=== PATIENT | female | born 1955 | race Asian ===

== ENCOUNTER 2023-11-18 07:00 | Day surgery (SDC) | payer OTHER ==
[~2023-11-18] VITALS: Ht 162.6 cm; Wt 63.0 kg
[2023-11-18] MEDS ORDERED: SIMETHICONE 40 MG/0.6 ML ML ONE (08:13)
[2023-11-18] MEDS ORDERED: MIDAZOLAM HCL 5 MG/5 ML VIAL ONE (08:14)
[2023-11-18] MEDS ORDERED: MEPERIDINE 100 MG INJ. 100 MG/ML VIAL ONE (08:14)
[2023-11-18 09:02] VITALS: O2SAT 99
[2023-11-18 16:02] VITALS: BP_SYST 102; PULSE 74; RESP 15
== END 2023-11-18 11:42 | disposition home or self-care (01) ==
LOC: SDS 07:00 → SMU 07:03 → SDS 11:42
PROVIDERS: ATTEND Internal Medicine Gastroenterology
DX: Z12.11 Encounter for screening for malignant neoplasm of colon (principal); D12.2 Benign neoplasm of ascending colon; D12.8 Benign neoplasm of rectum; D12.5 Benign neoplasm of sigmoid colon; K64.8 Other hemorrhoids; I10 Essential (primary) hypertension; E11.9 Type 2 diabetes mellitus without complications; E78.5 Hyperlipidemia, unspecified; Z90.710 Acquired absence of both cervix and uterus; Z90.49 Acquired absence of other specified parts of digestive tract; Z96.651 Presence of right artificial knee joint; Z79.84 Long term (current) use of oral hypoglycemic drugs; Z79.899 Other long term (current) drug therapy
CPT/HCPCS: 45385; 99152; 82948; 88305; G0378; J2250; J2175